=== PATIENT | male | born 1955 | race Caucasian/White ===

== ENCOUNTER → 2016-12-10 | Outpatient (CLI) | payer OTHER ==
[~2016-12-10] MED LIST: LISI-538 PO; SIMV10TA2 PO
--- NOTE | 2016-12-12 11:17 | REP ---
Left knee MRI: There are no comparison studies. The study is performed with proton density and T2-weighted dialysis in sagittal, axial and coronal projections. There is a joint effusion. Synovium and peak are outline by the effusion in the suprapatellar pouch. The patellar and trochlear articular cartilage are unremarkable. There is chondromalacia of the articular cartilage of the medial compartment. The cartilage of the lateral compartment is unremarkable. There is focal subcortical marrow edema in the the lateral compartment in the medial femoral condyle medial tibial plateau. There is periligamentous T2 signal of the medial collateral ligament compatible with ligamentous sprain. The lateral collateral ligament is unremarkable. The anterior posterior cruciate ligaments are unremarkable. The quadriceps and patellar tendons are unremarkable. There is a Angel's cyst measuring 5.6 cm craniocaudad by 3.2 cm AP by 2.1 cm transversely. There is a complex tear of the posterior horn of the medial meniscus. The anterior horn is unremarkable. The lateral meniscus is unremarkable except for degenerative signal. 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 Medial collateral ligament sprain. Complex tear of the posterior horn of the medial meniscus. Angel's cyst. Joint effusion. Signed by Shaun Giron MD 12/11/2016 01:22 P
== END ==
LOC: M RAD 14:14
PROVIDERS: ATTEND Orthopaedic Surgery
DX: M94.262 Chondromalacia, left knee (principal); M71.22 Synovial cyst of popliteal space [Baker], left knee; S83.232A Complex tear of medial meniscus, current injury, left knee, initial encounter; S83.412A Sprain of medial collateral ligament of left knee, initial encounter; X58.XXXA Exposure to other specified factors, initial encounter; Y92.89 Other specified places as the place of occurrence of the external cause; Y93.89 Activity, other specified; Y99.8 Other external cause status; M25.462 Effusion, left knee

== ENCOUNTER 2017-06-23 11:20 | Emergency (ER) | payer OTHER ==
[2017-06-23] MEDS ORDERED: ISOVUE-370 76% 100ML VIAL (Q9967) As Ordered ONE (11:43)
[2017-06-23] MEDS ORDERED: diphenhydrAMINE INJ 50MG/ML VIAL (J1200) IV STA (11:43)
[2017-06-23] MEDS ORDERED: NS 500 ML IV ONE (11:45)
[2017-06-23] MEDS ORDERED: methylPREDNISolone INJ 125 MG/2 ML VIAL (J2930) IV ONE (11:45)
[2017-06-23] MEDS ORDERED: FAMOTIDINE INJ 20MG/2ML VIAL (S0028) IVP ONE (11:45)
[2017-06-23 11:55] LABS: BASO % 0.5 % (0.0-1.0); EOS # 0.8 K/mm3 (0.0-0.50); EOS % 9.5 % (0.0-3.0); LARGE UNSTAINED CELL # 0.2 K/mm3 (0.0-0.4); LARGE UNSTAINED CELL % 1.8 % (0.0-4.0); LYMPH # 1.6 K/mm3 (1.5-4.5); LYMPH % 17.4 % (24.0-44.0); MEAN CORPUSCULAR HEMOGLOBIN 30.3 pg (27.0-33.0); MEAN CORPUSCULAR HGB CONC 34.4 g/dl (32.0-36.5); MEAN CORPUSCULAR VOLUME 88.1 fl (80.0-96.0); MONO # 0.5 K/mm3 (0.0-0.8); MONO % 6.2 % (0.0-5.0); NEUTROPHILS # 5.4 K/mm3 (1.8-7.7); NEUTROPHILS % 64.7 % (36.0-66.0); PLATELET COUNT, AUTOMATED 259 k/mm3 (150-450); RED CELL DISTRIBUTION WIDTH 13.3 % (11.5-14.5); WHITE BLOOD COUNT 8.4 K/mm3 (4.0-10.0)
[2017-06-23 12:01] LABS: INR 0.92
--- NOTE | 2017-06-23 12:12 | REP ---
CT Head without contrast HISTORY: Trauma COMPARISON: None There is no intraparenchymal hemorrhage, acute infarct, mass or midline shift. The ventricular system is normal in appearance. There is no extra cerebral collection. There is no fracture. Mucosal thickening is present in the ethmoid, maxillary and sphenoid sinuses. IMPRESSION: There is no intracranial lesion. Signed by Trenton Thornton MD 06/23/2017 12:03 P
--- NOTE | 2017-06-23 12:23 | REP ---
CT CERVICAL SPINE WITHOUT CONTRAST: HISTORY: Trauma. There is no acute fracture or subluxation. Disc bulges are present at the C3-4 and C4-5 levels. Disc bulges with associated osteophyte formation are present at the C5-6 and C6-7 levels. There is minimal narrowing of the spinal canal. Uncinate process hypertrophy is present at the C3-4, C5-6 and C6-7 levels. This produces minimal to mild narrowing of the neural foramina. The C5-6 and C6-7 intervertebral discs are decreased in height consistent with disc degeneration. Calcification is present in the right tonsil. This is secondary to previous inflammatory disease. IMPRESSION: 1. There is no acute fracture or subluxation. 2. There is cervical spondylosis at the C3-4 through C6-7 levels. Signed by Trenton Thornton MD 06/23/2017 12:27 P
[2017-06-23 12:24] LABS: ALBUMIN 3.9 GM/DL (3.2-5.2); ALBUMIN/GLOBULIN RATIO 1.08 (1.00-1.93); ALKALINE PHOSPHATASE 86 U/L (45-117); ALT/SGPT 33 U/L (12-78); AMYLASE 49 U/L (25-115); ANION GAP 7 MEQ/L (8-16); AST/SGOT 20 U/L (15-37); BILIRUBIN,DIRECT < 0.1 MG/DL (0.0-0.2); BILIRUBIN,TOTAL 0.4 MG/DL (0.2-1.0); BLOOD UREA NITROGEN 19 MG/DL (7-18); CALCIUM LEVEL 9.3 MG/DL (8.5-10.1); CARBON DIOXIDE LEVEL 27 MEQ/L (21-32); CHLORIDE LEVEL 104 MEQ/L (98-107); CREATININE FOR GFR 1.28 MG/DL (0.70-1.30); GLOMERULAR FILTRATION RATE > 60.0 (>56); GLUCOSE, FASTING 109 MG/DL (70-105); POTASSIUM SERUM 3.6 MEQ/L (3.5-5.1); SODIUM LEVEL 138 MEQ/L (136-145); TOTAL PROTEIN 7.5 GM/DL (6.4-8.2)
[2017-06-23] MEDS ORDERED: ASPI325T28 PO (12:25)
[2017-06-23] MEDS ORDERED: LISI20TA3 PO (12:25)
[2017-06-23] MEDS ORDERED: MORPHINE 4 MG/ML 1ML SYRINGE IV ONE (12:45)
[2017-06-23] MEDS ORDERED: ONDANSETRON 4MG/2ML VIAL (J2405) IV ONE (12:45)
[2017-06-23] MEDS ORDERED: NS 1,000 ML IV ONE (12:45)
[2017-06-23 13:04] VITALS: BP 138/70
--- NOTE | 2017-06-23 13:23 | REP ---
CT ABDOMEN AND PELVIS WITH IV CONTRAST: TECHNIQUE: Axial contrast enhanced images from the lung bases to the pubic symphysis using 100 mL Isovue 370 intravenous contrast material with multiplanar reformations. The liver, spleen, adrenals, pancreas and kidneys are normal in appearance. There is no evidence of visceral organ injury. Gallbladder is grossly unremarkable. There is no abdominal aortic aneurysm or dissection. There is no adenopathy. There is no free air or free fluid. No bowel wall thickening is seen. No pelvic mass is seen. Urinary bladder appears intact. No fracture is seen of the visualized osseous structures. IMPRESSION: Negative CT abdomen and pelvis with no evidence of visceral organ injury. No free air or free fluid. Signed by Shaun Harvey MD 06/23/2017 05:10 P
--- NOTE | 2017-06-23 13:35 | REP ---
PORTABLE CHEST, SINGLE VIEW: There is no evidence of acute infiltrate. No pleural effusion is seen. The heart is normal in size. The mediastinal silhouette is unremarkable. The visualized osseous structures are intact. IMPRESSION: No acute pulmonary disease. Signed by Shaun Harvey MD 06/23/2017 05:10 P
--- NOTE | 2017-06-23 13:36 | REP ---
LEFT KNEE: AP and lateral portable views of the left knee are performed. I see no evidence of acute fracture or dislocation. There is a moderate joint effusion. There is moderate medial joint space narrowing. IMPRESSION: Moderate joint effusion. No acute fracture or dislocation. Signed by Shaun Harvey MD 06/23/2017 05:10 P
--- NOTE | 2017-06-23 13:37 | REP ---
CT CHEST WITH IV CONTRAST: TECHNIQUE: Axial contrast enhanced images from the thoracic inlet to the upper abdomen using 100 mL Isovue 370 intravenous contrast material with multiplanar reformations. There are approximately six ill-defined nodular densities scattered throughout the right lung, maximum diameter 7 mm. There is a thick band of density in the left upper lobe peripherally, with a length of about 9 mm and a thickness of about 4 mm. There are two calcified granulomas in the left upper lobe. Small calcified lymph nodes are seen in the left hilar region. There is no evidence of thoracic aortic aneurysm or dissection. There is no pleural or pericardial effusion. No suspicious adenopathy seen. Heart is normal in size. There are degenerative changes of the spine. Visualized osseous structures demonstrate no definite fracture. IMPRESSION: No evidence of thoracic aortic aneurysm or dissection. No acute infiltrate, pneumothorax or pleural effusion. There are approximately six ill-defined nodular densities scattered throughout the right lung. Recommend followup CT of the chest in 3 months if the patient is at high risk for cancer, 6 months if at low risk. Signed by Shaun Harvey MD 06/23/2017 05:10 P
[2017-06-23] MEDS ORDERED: PERCOCET 5MG/325MG TAB PO ONE (13:45)
[2017-06-23 13:52] LABS: METHADONE URINE NEGATIVE (NEGATIVE)
[2017-06-23] MEDS ORDERED: NORCOTAB PO (14:43)
[2017-06-23] MEDS ORDERED: IBUP-1022 PO (14:43)
[2017-06-23] MEDS ORDERED: ZOFR4TAB3 PO (14:45)
[2017-06-23] MEDS ORDERED: CYCL5TAB PO (14:45)
--- NOTE | 2017-06-23 19:56 | ECGEPIP ---
Stationary ECG Study [facility] - ED Test Date: 2017-06-23 Pat Name: BRIAN OLIVAS Department: Room: - Gender: M [employer] Programmer: jessica : 1955 Requested By: Willie Sam Order Number: [id number] Reading MD: Willie Sam Measurements Intervals [place] Rate: 72 P: -4 MD: 182 QRS: -25 QRSD: 105 T: -8 QT: 397 QTc: 436 Interpretive Statements SINUS RHYTHM BORDERLINE LEFT AXIS DEVIATION MINIMAL VOLTAGE CRITERIA FOR LVH, CONSIDER NORMAL VARIANT NO OLD ECG FOR COMPARISON Electronically Signed On 06-23-2017 19:56:11 EDT by Willie Sam
--- NOTE | 2017-06-27 13:51 | ED PDOC ---
Post-Departure Follow-Up mihir doan faxed formal report of ct chest for fu Willie Quinones MD Jun 27, 2017 13:51
== END 2017-06-23 15:20 | disposition home or self-care (01) ==
LOC: EDBD 11:20 → M ED 11:20
DX: R91.8 Other nonspecific abnormal finding of lung field (principal); M25.462 Effusion, left knee; S16.1XXA Strain of muscle, fascia and tendon at neck level, initial encounter; S09.90XA Unspecified injury of head, initial encounter; V49.40XA Driver injured in collision with unspecified motor vehicles in traffic accident, initial encounter; Y92.410 Unspecified street and highway as the place of occurrence of the external cause; Y93.9 Activity, unspecified; Y99.8 Other external cause status; M47.812 Spondylosis without myelopathy or radiculopathy, cervical region
CPT/HCPCS: 36415; 70450; 71010; 71260; 72125; 73560; 74177; 80048; 80076; 80307; 82150; 82550; 82553; 83605; 83690; 85025; 85610; 85730; 86850; 86900; 86901; 93005; 93041; 94760; 96374; 96375; 99285; G0480; J1200; J2405; J2930; Q9967

== ENCOUNTER → 2018-03-16 | Outpatient (CLI) | payer OTHER ==
[~2018-03-16] MED LIST changes: +ISOVUE-370 76% 100ML VIAL (Q9967) As Ordered; -LISI-538 PO; -SIMV10TA2 PO
== END ==
LOC: M RAD 16:36
DX: R07.9 Chest pain, unspecified (principal); R91.1 Solitary pulmonary nodule; R79.89 Other specified abnormal findings of blood chemistry
CPT/HCPCS: Q9967

== ENCOUNTER → 2019-02-27 | Outpatient (CLI) | payer OTHER ==
[~2019-02-27] MED LIST changes: +ASPI-222 PO; +CYCL5TAB PO; +HYDR-3715 PO; +IBUP-1022 PO; -ISOVUE-370 76% 100ML VIAL (Q9967) As Ordered; +LISI-538 PO; +LISI20TA3 PO; +SIMV10TA2 PO; +ZOFR4TAB14 PO
--- NOTE | 2019-02-27 13:34 | REP ---
REASON: Followup pulmonary nodule. All priors were reviewed. The latest of which is dated 03/16/2018 and showed a stable 7 mm sized nodule in the right lower lobe while other previously noted nodules have resolved. The mediastinum and pulmonary eun are unchanged showing no evidence of mass or adenopathy although seen in a limited fashion due to the lack of intravenous contrast administration. There is no change in the appearance of the imaged osseous structures or imaged upper abdomen. There are no pleural or pericardial effusions. Evaluation of the lung castillo shows a stable 7 mm sized nodule in the right lower lobe. In the anterior segment of the left upper lobe there is a new 5 mm sized partially ground glass nodule. No other lung field changes are present. IMPRESSION: 1. New 5 mm sized nodule in the left upper lobe as described above. According to the revised Fleischner's Society criteria followup for this nodule is recommended in 3 months as it represents a category 4A lesion. 2. Other findings as described above. Electronically Signed by Vicente Colby DO 02/27/2019 01:39 P
== END ==
LOC: M RAD 12:26
PROVIDERS: ATTEND Nurse Practitioner Family
DX: R91.1 Solitary pulmonary nodule (principal)

== ENCOUNTER → 2019-05-27 | Outpatient (CLI) | payer OTHER ==
[~2019-05-27] MED LIST changes: -ASPI-222 PO; +ASPI-527 PO; +LISI20TA20 PO; -LISI20TA3 PO; -SIMV10TA2 PO; +SIMV10TA21 PO
--- NOTE | 2019-05-27 16:07 | REP ---
CT of the chest without IV contrast: Comparisons are multiple prior studies dating to 06/23/2017. Studies performed for follow up of lung nodules. There is a nodule in the right lower lobe on image 49. This nodule previously measured 7 mm on all prior studies. It measures 8 mm. On the study today. There is a new nodule, not present on the prior studies posterolaterally in the lingular segment of the left upper lobe on image 64 measuring 6 mm. There is a stable calcified granuloma in the left upper lobe on image 47, unchanged from all prior studies. All of the patient's prior other pulmonary nodules have resolved. There are no infiltrates or pleural effusions. There is no mediastinal or axillary lymph node enlargement. The study is insensitive for hilar lymph node enlargement in the absence of IV contrast. There are calcified granulomas in the left hilus, unchanged. Thoracic aorta is unremarkable. Cardiac size is normal. The visualized upper abdominal contents are unremarkable. There is no adrenal mass. Impression: The patients known right lower lobe lung nodule has increased from 7 mm to 8 mm. This is not considered a significant foreign exchange dealer the time frame from 06/23/2017. There is a new 6 ml nodule in the lingular segment of the left upper lobe. There are stable granulomas in the left lung and left hilus. Electronically Signed by Shaun Giron MD 05/27/2019 03:59 P
== END ==
LOC: M RAD 14:40
PROVIDERS: ATTEND Nurse Practitioner Family
DX: R91.8 Other nonspecific abnormal finding of lung field (principal)

== ENCOUNTER → 2019-09-19 | Outpatient (REF) | payer OTHER ==
[~2019-09-19] MED LIST changes: +SIMV10TA2 PO; -SIMV10TA21 PO
[2019-09-19 17:03] LABS: ALBUMIN 4.1 GM/DL (3.2-5.2); ALT/SGPT 35 U/L (12-78); BILIRUBIN,TOTAL 0.3 MG/DL (0.2-1.0); BLOOD UREA NITROGEN 20 MG/DL (7-18); CALCIUM LEVEL 9.3 MG/DL (8.8-10.2); CARBON DIOXIDE LEVEL 32 MEQ/L (21-32); CHLORIDE LEVEL 103 MEQ/L (98-107); CHOLESTEROL LEVEL 203 MG/DL (<200); CREATININE FOR GFR 1.12 MG/DL (0.70-1.30); GLOMERULAR FILTRATION RATE > 60.0 (>49); GLUCOSE, FASTING 93 MG/DL (70-100); HDL CHOLESTEROL 55 MG/DL (>40); LDL CHOLESTEROL 115 MG/DL (<100); NON-HDL-C 148 MG/DL; POTASSIUM SERUM 4.2 MEQ/L (3.5-5.1); SODIUM LEVEL 141 MEQ/L (136-145); TOTAL PROTEIN 6.9 GM/DL (6.4-8.2); TRIGLYCERIDES LEVEL 164 MG/DL (<150)
[2019-09-19 17:05] LABS: BASO # 0.1 10^3/uL (0.0-0.2); BASO % 0.7 % (0.0-1.0); EOS % 12.5 % (0.0-3.0); HEMATOCRIT 48.4 % (42.0-52.0); HEMOGLOBIN 15.6 g/dl (13.5-17.5); LYMPH # 1.8 10^3/uL (1.5-5.0); LYMPH % 21.9 % (24.0-44.0); MEAN CORPUSCULAR HEMOGLOBIN 30.2 pg (27.0-33.0); MEAN CORPUSCULAR HGB CONC 32.2 g/dl (32.0-36.5); MEAN CORPUSCULAR VOLUME 93.6 fl (80.0-96.0); MONO # 0.6 10^3/uL (0.0-0.8); MONO % 7.6 % (0.0-5.0); NEUTROPHILS # 4.7 10^3/uL (1.5-8.5); NEUTROPHILS % 56.9 % (36.0-66.0); PLATELET COUNT, AUTOMATED 310 10^3/uL (150-450); RED BLOOD COUNT 5.17 10^6/uL (4.30-6.10); WHITE BLOOD COUNT 8.3 10^3/uL (4.0-10.0)
[2019-09-19 17:22] LABS: HEMOGLOBIN A1c 5.7 %
== END ==
LOC: M SFHCCLAY 11:31
PROVIDERS: ATTEND Nurse Practitioner Family
DX: I10 Essential (primary) hypertension (principal); E78.2 Mixed hyperlipidemia; Z13.1 Encounter for screening for diabetes mellitus

== ENCOUNTER → 2019-10-02 | Outpatient (CLI) | payer OTHER ==
--- NOTE | 2019-10-02 14:01 | REP ---
CT chest without contrast: History: Other nonspecific abnormal finding of the lung field. Comparison is made with prior chest CTs, the most remote of which is from June 23, 2017 and the most recent of which is from May 27, 2019. Findings: Previously noted 8 mm right lower lobe pulmonary nodule is again seen unchanged from May 27, 2019 and felt to be unchanged from the June 23, 2017 prior study. There are two granulomatous calcifications in the left upper lobe which are coarse and are unchanged as well. There is a tiny noncalcified 3 mm nodule in the left lower lobe which is unchanged from June 23, 2017 as well. This can be considered benign. No other pulmonary nodule is visible today. The nodule identified in the lingula on May 27, 2019 has resolved. There are tiny stable asha-fissural nodules in the major fissure on the left. These are unchanged from 2017. No hilar or mediastinal mass or adenopathy is observed. There is some vascular calcification. There are granulomatous lymph node calcifications in the left hilus. No adrenal lesion is seen. Impression: No active disease. Stable right lower lobe noncalcified pulmonary nodule. There are other tiny stable nodules bilaterally and there are two granulomatous calcifications in the left upper lobe. Electronically Signed by Yair Schaefer MD 10/02/2019 03:26 P
== END ==
LOC: M RAD 09:21
PROVIDERS: ATTEND Internal Medicine Pulmonary Disease
DX: R91.1 Solitary pulmonary nodule (principal)

== ENCOUNTER → 2021-05-05 | Outpatient (CLI) | payer OTHER ==
[~2021-05-05] MED LIST changes: -LISI-538 PO; +LISI20TA33 PO; -SIMV10TA2 PO; +SIMV10TA21 PO
--- NOTE | 2021-05-05 13:47 | REP ---
INDICATION: LEFT KNEE OSTEOARTHRITIS PRE OP. COMPARISON: Comparison chest x-ray June 23, 2017. TECHNIQUE: Two views.. FINDINGS: The lungs are well inflated and free of infiltrate. The pleural angles are sharp. The heart size is normal. Pulmonary vasculature is not increased. No significant bony abnormality is seen. There is a calcified nodule in the left mid lung field consistent with a granuloma. There are degenerative disc changes in the thoracic spine. IMPRESSION: No active cardiopulmonary disease.. <Electronically signed by Fredrick Schaefer > 05/05/21 [id number]
[2021-05-05 17:07] LABS: HEMATOCRIT 44.7 % (42.0-52.0); HEMOGLOBIN 14.4 g/dl (13.5-17.5); MEAN CORPUSCULAR HEMOGLOBIN 29.6 pg (27.0-33.0); MEAN CORPUSCULAR HGB CONC 32.2 g/dl (32.0-36.5); MEAN CORPUSCULAR VOLUME 91.8 fl (80.0-96.0); PLATELET COUNT, AUTOMATED 262 10^3/uL (150-450); RED BLOOD COUNT 4.87 10^6/uL (4.30-6.10); WHITE BLOOD COUNT 7.4 10^3/uL (4.0-10.0)
[2021-05-05 17:11] LABS: ALT/SGPT 49 U/L (12-78); BILIRUBIN,TOTAL 0.3 MG/DL (0.2-1.0); BLOOD UREA NITROGEN 14 MG/DL (7-18); CALCIUM LEVEL 9.4 MG/DL (8.8-10.2); CARBON DIOXIDE LEVEL 31 MEQ/L (21-32); CHLORIDE LEVEL 105 MEQ/L (98-107); CREATININE FOR GFR 0.99 MG/DL (0.70-1.30); GLOMERULAR FILTRATION RATE > 60.0 (>49); GLUCOSE, FASTING 95 MG/DL (70-100); POTASSIUM SERUM 4.2 MEQ/L (3.5-5.1); SODIUM LEVEL 140 MEQ/L (136-145)
[2021-05-05 17:23] LABS: INR 0.92; PROTHROMBIN TIME 12.6 SECONDS (12.5-14.3)
[2021-05-05 17:37] LABS: ERYTHROCYTE SEDIMENTATION RATE 7 mm/hr (0-20)
== END ==
LOC: M CLY 13:06
PROVIDERS: ATTEND Orthopaedic Surgery
DX: M17.12 Unilateral primary osteoarthritis, left knee (principal)

== ENCOUNTER → 2022-02-22 | Outpatient (REF) | payer OTHER ==
[~2022-02-22] MED LIST changes: -LISI20TA20 PO; +LISI20TA37 PO
[2022-02-22 15:57] LABS: HEMOGLOBIN 14.9 g/dl (13.5-17.5); MEAN CORPUSCULAR HEMOGLOBIN 30.2 pg (27.0-33.0); MEAN CORPUSCULAR HGB CONC 33.1 g/dl (32.0-36.5); MEAN CORPUSCULAR VOLUME 91.1 fl (80.0-96.0); PLATELET COUNT, AUTOMATED 274 10^3/uL (150-450); RED BLOOD COUNT 4.94 10^6/uL (4.30-6.10); WHITE BLOOD COUNT 7.6 10^3/uL (4.0-10.0)
[2022-02-22 17:29] LABS: ALBUMIN 3.8 GM/DL (3.2-5.2); ALT/SGPT 35 U/L (12-78); BILIRUBIN,TOTAL 0.3 MG/DL (0.2-1.0); BLOOD UREA NITROGEN 12 MG/DL (7-18); CALCIUM LEVEL 9.5 MG/DL (8.8-10.2); CARBON DIOXIDE LEVEL 30 MEQ/L (21-32); CHLORIDE LEVEL 106 MEQ/L (98-107); CHOLESTEROL LEVEL 223 MG/DL (<200); CHOLESTEROL RISK RATIO 4.551 (<5); CREATININE FOR GFR 0.94 MG/DL (0.70-1.30); GLOMERULAR FILTRATION RATE > 60.0 (>49); GLUCOSE, FASTING 93 MG/DL (70-100); HDL CHOLESTEROL 49 MG/DL (>40); LDL CHOLESTEROL 127 MG/DL (<100); NON-HDL-C 174 MG/DL; POTASSIUM SERUM 4.4 MEQ/L (3.5-5.1); SODIUM LEVEL 142 MEQ/L (136-145); TOTAL PROTEIN 6.7 GM/DL (6.4-8.2); TRIGLYCERIDES LEVEL 235 MG/DL (<150)
[2022-02-22 18:47] LABS: HEMOGLOBIN A1c 5.5 %
== END ==
LOC: M SFHCCLAY 13:39
PROVIDERS: ATTEND Nurse Practitioner Family
DX: I10 Essential (primary) hypertension (principal); Z13.220 Encounter for screening for lipoid disorders; Z13.1 Encounter for screening for diabetes mellitus

== ENCOUNTER → 2023-01-09 | Outpatient (REF) | payer OTHER ==
[2023-01-09 17:44] LABS: BASO # 0.1 10^3/uL (0.0-0.2); BASO % 0.6 % (0.0-1.0); EOS # 0.2 10^3/uL (0.0-0.5); EOS % 2.2 % (0.0-3.0); HEMATOCRIT 49.1 % (42.0-52.0); HEMOGLOBIN 15.7 g/dl (13.5-17.5); LYMPH # 1.9 10^3/uL (1.5-5.0); LYMPH % 22.7 % (24.0-44.0); MEAN CORPUSCULAR HEMOGLOBIN 29.6 pg (27.0-33.0); MEAN CORPUSCULAR VOLUME 92.6 fl (80.0-96.0); MONO # 0.7 10^3/uL (0.0-0.8); MONO % 8.4 % (2.0-8.0); NEUTROPHILS # 5.6 10^3/uL (1.5-8.5); PLATELET COUNT, AUTOMATED 296 10^3/uL (150-450); WHITE BLOOD COUNT 8.5 10^3/uL (4.0-10.0)
[2023-01-09 18:15] LABS: HEMOGLOBIN A1c 5.8 % (4.0-6.0)
[2023-01-09 18:21] LABS: ALBUMIN 4.2 G/DL (3.2-5.2); ALKALINE PHOSPHATASE 81 U/L (46-116); ALT/SGPT 48 U/L (7.0-40); AST/SGOT 30 U/L (<34); BILIRUBIN,TOTAL 0.4 MG/DL (0.3-1.2); BLOOD UREA NITROGEN 18 MG/DL (9-23); CALCIUM LEVEL 9.5 MG/DL (8.3-10.6); CARBON DIOXIDE LEVEL 30 MMOL/L (20-31); CHLORIDE LEVEL 103 MMOL/L (98-107); CHOLESTEROL LEVEL 176 MG/DL (<200); CHOLESTEROL RISK RATIO 3.65 (<5); CREATININE FOR GFR 0.99 MG/DL (0.70-1.30); FREE T4 1.23 NG/DL (0.89-1.76); GLOMERULAR FILTRATION RATE > 60.0 (>49); GLUCOSE, FASTING 101 MG/DL (74-106); HDL CHOLESTEROL 48.1 MG/DL (>40); LDL CHOLESTEROL 109.3 MG/DL (<100); NON-HDL-C 128 MG/DL; SODIUM LEVEL 140 MMOL/L (136-145); THYROID STIMULATING HORMONE 3.123 uIU/ML (0.55-4.78); TOTAL PROTEIN 6.9 G/DL (5.7-8.2); TRIGLYCERIDES LEVEL 93 MG/DL (<150)
== END ==
LOC: M SFHCCLAY 09:47
PROVIDERS: ATTEND Nurse Practitioner Family
DX: I10 Essential (primary) hypertension (principal); E78.2 Mixed hyperlipidemia; Z13.1 Encounter for screening for diabetes mellitus; Z13.220 Encounter for screening for lipoid disorders

== ENCOUNTER → 2023-07-06 | Outpatient (REF) | payer OTHER | LOC: M SFHCCAPE 09:33 | PROVIDERS: ATTEND Physician Assistant | DX: R30.0 Dysuria (principal) ==

== ENCOUNTER → 2023-07-14 | Outpatient (REF) | payer OTHER | LOC: M SFHCPLAZ 09:21 | PROVIDERS: ATTEND Nurse Practitioner Family | DX: N39.0 Urinary tract infection, site not specified (principal) ==

== ENCOUNTER → 2023-10-31 | Outpatient (REF) | payer OTHER, MEDICAID ==
[2023-10-31 16:55] LABS: BASO # 0.1 10^3/uL (0.0-0.2); BASO % 0.6 % (0.0-1.0); EOS # 0.3 10^3/uL (0.0-0.5); HEMATOCRIT 46.7 % (42.0-52.0); HEMOGLOBIN 15.2 g/dl (13.5-17.5); LYMPH # 2.1 10^3/uL (1.5-5.0); LYMPH % 22.7 % (24.0-44.0); MEAN CORPUSCULAR HEMOGLOBIN 29.4 pg (27.0-33.0); MEAN CORPUSCULAR HGB CONC 32.5 g/dl (32.0-36.5); MEAN CORPUSCULAR VOLUME 90.3 fl (80.0-96.0); MONO # 0.7 10^3/uL (0.0-0.8); MONO % 7.9 % (2.0-8.0); NEUTROPHILS # 6.1 10^3/uL (1.5-8.5); NEUTROPHILS % 65.6 % (36.0-66.0); PLATELET COUNT, AUTOMATED 299 10^3/uL (150-450); RED BLOOD COUNT 5.17 10^6/uL (4.30-6.10); WHITE BLOOD COUNT 9.3 10^3/uL (4.0-10.0)
[2023-10-31 17:04] LABS: ALBUMIN 4.2 G/DL (3.2-5.2); ALKALINE PHOSPHATASE 70 U/L (46-116); ALT/SGPT 36 U/L (7.0-40); AST/SGOT 28 U/L (<34); BILIRUBIN,TOTAL 0.4 MG/DL (0.3-1.2); BLOOD UREA NITROGEN 15 MG/DL (9-23); CARBON DIOXIDE LEVEL 27 MMOL/L (20-31); CHLORIDE LEVEL 105 MMOL/L (98-107); CHOLESTEROL LEVEL 194 MG/DL (<200); CHOLESTEROL RISK RATIO 3.63 (<5); CREATININE FOR GFR 0.93 MG/DL (0.70-1.30); GLOMERULAR FILTRATION RATE > 60.0 (>49); GLUCOSE, FASTING 102 MG/DL (74-106); HDL CHOLESTEROL 53.3 MG/DL (>40); LDL CHOLESTEROL 113.7 MG/DL (<100); NON-HDL-C 140.7 MG/DL; POTASSIUM SERUM 4.4 MMOL/L (3.5-5.1); SODIUM LEVEL 140 MMOL/L (136-145); TOTAL PROTEIN 6.8 G/DL (5.7-8.2); TRIGLYCERIDES LEVEL 135 MG/DL (<150)
[2023-10-31 17:06] LABS: THYROID STIMULATING HORMONE 2.467 uIU/ML (0.55-4.78)
[2023-10-31 17:07] LABS: FREE T4 1.19 NG/DL (0.89-1.76)
[2023-10-31 18:01] LABS: HEMOGLOBIN A1c 5.4 % (4.0-6.0)
== END ==
LOC: M SFHCCLAY 09:56
PROVIDERS: ATTEND Nurse Practitioner Family
DX: I10 Essential (primary) hypertension (principal); E78.2 Mixed hyperlipidemia; R73.03 Prediabetes

== ENCOUNTER 2024-09-13 08:09 | Observation (INO) | payer OTHER, MEDICAID ==
[~2024-09-13] VITALS: Ht 170.2 cm; Wt 97.9 kg
[~2024-09-13 08:09] MED LIST changes: -CYCL5TAB PO; +CYCL5TAB4 PO
[2024-09-13] MEDS ORDERED: ISOVUE-370 76% 100ML VIAL As Ordered ONE (08:26)
[2024-09-13 08:35] LABS: BASO % 0.5 % (0.0-1.0); EOS # 0.2 10^3/uL (0.0-0.5); EOS % 2.5 % (0.0-3.0); HEMATOCRIT 45.2 % (42.0-52.0); HEMOGLOBIN 14.9 g/dl (13.5-17.5); LYMPH # 1.9 10^3/uL (1.5-5.0); LYMPH % 25.7 % (24.0-44.0); MEAN CORPUSCULAR HEMOGLOBIN 29.9 pg (27.0-33.0); MEAN CORPUSCULAR VOLUME 90.8 fl (80.0-96.0); MONO # 0.7 10^3/uL (0.0-0.8); MONO % 9.3 % (2.0-8.0); NEUTROPHILS # 4.5 10^3/uL (1.5-8.5); NEUTROPHILS % 61.7 % (36.0-66.0); PLATELET COUNT, AUTOMATED 268 10^3/uL (150-450); RED BLOOD COUNT 4.98 10^6/uL (4.30-6.10); WHITE BLOOD COUNT 7.3 10^3/uL (4.0-10.0)
[2024-09-13 08:57] LABS: INR 0.9; PARTIAL THROMBOPLASTIN TIME 25.6 SECONDS (24.8-34.2); PROTHROMBIN TIME 12.4 SECONDS (12.5-14.5)
[2024-09-13 09:12] VITALS: BP 167/69; TEMP 98.1; O2SAT 100
[2024-09-13 09:25] LABS: BLOOD UREA NITROGEN 19 MG/DL (9-23); CALCIUM LEVEL 9.8 MG/DL (8.3-10.6); CARBON DIOXIDE LEVEL 28 MMOL/L (20-31); CHLORIDE LEVEL 110 MMOL/L (98-107); GLOMERULAR FILTRATION RATE > 60.0 (>49); GLUCOSE, FASTING 106 MG/DL (74-106); POTASSIUM SERUM 4.1 MMOL/L (3.5-5.1); SODIUM LEVEL 143 MMOL/L (136-145)
[2024-09-13 09:28] VITALS: BP 150/75; O2SAT 98
[2024-09-13 09:40] LABS: ETHYL ALCOHOL (ETHANOL) 0.004 % (0.000-0.010)
[2024-09-13 09:42] LABS: ALBUMIN 3.7 G/DL (3.2-5.2); ALKALINE PHOSPHATASE 77 U/L (40-129); ALT/SGPT 34 U/L (7.0-40); AST/SGOT 25 U/L (<34); BILIRUBIN,DIRECT 0.1 MG/DL (<0.4); BILIRUBIN,TOTAL 0.4 MG/DL (0.3-1.2); TOTAL PROTEIN 6.8 G/DL (5.7-8.2)
[2024-09-13 09:43] VITALS: BP 157/80; O2SAT 99
[2024-09-13] MEDS: CLOPIDOGREL 300 MG TAB (PLAVIX) PO STA (09:55)
[2024-09-13] MEDS: ASPIRIN ENTERIC 325MG TAB PO SCH (10:02)
[2024-09-13 10:34] LABS: AMPHETAMINES LEVEL URINE NEGATIVE (NEGATIVE); BARBITURATES URINE NEGATIVE (NEGATIVE); BENZODIAZEPINES URINE NEGATIVE (NEGATIVE); CANNABINOIDS URINE NEGATIVE (NEGATIVE); COCAINE METABOLITE URINE NEGATIVE (NEGATIVE); METHADONE URINE NEGATIVE (NEGATIVE); PHENCYCLIDINE URINE NEGATIVE (NEGATIVE)
[2024-09-13 10:35] LABS: OPIATES URINE NEGATIVE (NEGATIVE)
[2024-09-13] MEDS ORDERED: ECOT81TA5 PO (11:43)
[2024-09-13] MEDS ORDERED: HOME MED LIST COMPLETE! XX SCH (11:45)
[2024-09-13] MEDS ORDERED: ACETAMINOPHEN 325 MG TAB PO PRN (11:45)
[2024-09-13 12:55] VITALS: BP 168/72; TEMP 97.7; O2SAT 98
[2024-09-13 20:50] VITALS: BP 148/79; TEMP 97.9; O2SAT 99
[2024-09-14 04:00] VITALS: BP 144/77; TEMP 97.9; O2SAT 98
[2024-09-14] MEDS: ASPIRIN 81MG ENTERIC TABLET PO SCH (08:30)
[2024-09-14] MEDS: SIMVASTATIN 10 MG TAB PO SCH (08:31)
[2024-09-14] MEDS: ENOXAPARIN 40MG/0.4ML SYRINGE (J1650 PER 10MG) SC SCH (08:31)
[2024-09-14 08:36] VITALS: BP 163/92
[2024-09-14 08:38] VITALS: BP 138/88
[2024-09-14 12:00] VITALS: BP 137/84; TEMP 97.9; O2SAT 99
== END 2024-09-14 14:15 | disposition home or self-care (01) ==
LOC: M ED 08:09 → EDBD 08:09 → M ED INP 08:12 → M MSPAV 13:00
PROVIDERS: ADMIT Student in an Organized Health Care Education/Training Program; ATTEND Student in an Organized Health Care Education/Training Program
DX: Z04.1 Encounter for examination and observation following transport accident (principal); R41.82 Altered mental status, unspecified; W22.09XA Striking against other stationary object, initial encounter; R68.84 Jaw pain; V74.5XXA Driver of bus injured in collision with heavy transport vehicle or bus in traffic accident, initial encounter; Y92.410 Unspecified street and highway as the place of occurrence of the external cause; R42 Dizziness and giddiness; H53.8 Other visual disturbances; R53.1 Weakness; I10 Essential (primary) hypertension; E78.5 Hyperlipidemia, unspecified; Z98.890 Other specified postprocedural states; Z87.820 Personal history of traumatic brain injury; Z83.3 Family history of diabetes mellitus; Z80.0 Family history of malignant neoplasm of digestive organs; Z79.899 Other long term (current) drug therapy; Z79.82 Long term (current) use of aspirin; Z88.8 Allergy status to other drugs, medicaments and biological substances
CPT/HCPCS: 70450; 70486; 70496; 70498; 70544; 70551; 71045; 72125; 80048; 80076; 80307; 82077; 85025; 85610; 85730; 93005; 93041; 94760; 99285; G0378; Q9967

== ENCOUNTER → 2024-12-30 | Outpatient (REF) | payer MEDICARE, MEDICAID ==
[~2024-12-30] MED LIST changes: +ECOT81TA5 PO
[2024-12-30 18:35] LABS: BASO % 0.6 % (0.0-1.0); EOS # 0.2 10^3/uL (0.0-0.5); EOS % 2.4 % (0.0-3.0); HEMATOCRIT 45.6 % (42.0-52.0); HEMOGLOBIN 15.1 g/dl (13.5-17.5); LYMPH # 1.3 10^3/uL (1.5-5.0); MEAN CORPUSCULAR HEMOGLOBIN 30.3 pg (27.0-33.0); MEAN CORPUSCULAR HGB CONC 33.1 g/dl (32.0-36.5); MEAN CORPUSCULAR VOLUME 91.6 fl (80.0-96.0); MONO # 0.7 10^3/uL (0.0-0.8); MONO % 9.9 % (2.0-8.0); NEUTROPHILS # 4.5 10^3/uL (1.5-8.5); PLATELET COUNT, AUTOMATED 287 10^3/uL (150-450); RED BLOOD COUNT 4.98 10^6/uL (4.30-6.10); WHITE BLOOD COUNT 6.7 10^3/uL (4.0-10.0)
[2024-12-30 18:56] LABS: HEMOGLOBIN A1c 5.6 % (4.0-6.0)
[2024-12-30 19:12] LABS: ALKALINE PHOSPHATASE 80 U/L (40-129); ALT/SGPT 37 U/L (7.0-40); AST/SGOT 27 U/L (<34); BILIRUBIN,TOTAL 0.4 MG/DL (0.3-1.2); BLOOD UREA NITROGEN 15 MG/DL (9-23); CALCIUM LEVEL 9.8 MG/DL (8.3-10.6); CARBON DIOXIDE LEVEL 29 MMOL/L (20-31); CHLORIDE LEVEL 104 MMOL/L (98-107); CHOLESTEROL LEVEL 208 MG/DL (<200); CHOLESTEROL RISK RATIO 3.44 (<5); CREATININE FOR GFR 0.85 MG/DL (0.70-1.30); GLOMERULAR FILTRATION RATE > 60.0 (>49); GLUCOSE, FASTING 92 MG/DL (74-106); HDL CHOLESTEROL 60.4 MG/DL (>40); NON-HDL-C 147.6 MG/DL; POTASSIUM SERUM 4.9 MMOL/L (3.5-5.1); SODIUM LEVEL 141 MMOL/L (136-145); TOTAL PROTEIN 7.2 G/DL (5.7-8.2); TRIGLYCERIDES LEVEL 163 MG/DL (<150)
[2024-12-30 19:13] LABS: FREE T4 1.33 NG/DL (0.89-1.76)
[2024-12-30 19:14] LABS: THYROID STIMULATING HORMONE 2.451 uIU/ML (0.55-4.78)
== END ==
LOC: M SFHCCLAY 09:01
PROVIDERS: ATTEND Nurse Practitioner Family
DX: I10 Essential (primary) hypertension (principal); E78.2 Mixed hyperlipidemia; R73.03 Prediabetes; Z12.5 Encounter for screening for malignant neoplasm of prostate
CPT/HCPCS: 80053; 80061; 83036; 84439; 84443; 85025; G0103